=== PATIENT | male | born 1960 | race Caucasian/White ===

== ENCOUNTER 2019-07-16 16:35 | Observation (INO) ==
--- NOTE | 2019-07-16 17:55 | Diag Imaging Result Doc PS360 ---
CT HEAD W/O CONTRAST - 07/16/2019 INDICATION: confusion COMPARISON: None FINDINGS: The ventricles and sulci are normal in size and contour. No intracranial mass or hemorrhage. The skull is intact. There is some mild ethmoid and sphenoid sinusitis. IMPRESSION: Mild sinusitis. No acute intracranial abnormality. This exam was performed using automated exposure control, adjustment of mA or kV according to patient size, and/or use of iterative reconstruction technique Electronically signed by Bernardino Lopez 07/16/2019 5:52 PM
--- NOTE | 2019-07-16 18:44 | PROVIDER DOCUMENTATION ---
HPI-Screening - General Chief Complaint: Stroke-Like Symptoms Stated Complaint: "STROKE SYMPTOMS" Time Seen by Provider: 07/16/19 18:38 Source: patient Allergies/Adverse Reactions: Allergies Allergy/AdvReac Type Severity Reaction Status Date / Time prochlorperazine edisylate * AdvReac Severe Unknown Verified 03/26/18 12:26 [From Compazine] prochlorperazine maleate * AdvReac Severe Unknown Verified 03/26/18 12:26 [From Compazine] Home Medications: Home Medication List Medication Instructions Recorded Confirmed Last Taken Type Atenolol 100 mg PO DAILY 02/10/13 02/10/13 02/10/13 05:00 History Lorazepam [Ativan] 0.5 mg PO TID 02/10/13 02/10/13 02/10/13 05:00 History Docusate Sodium [Colace] 100 mg PO BID #40 capsule 02/14/13 Unknown Rx Hydrocodone/Acetaminophen [Lortab 1 each PO Q4H PRN #30 tablet 02/14/13 Unknown Rx 5-500 Tablet] Ondansetron [Zofran] 4 mg PO Q4H PRN PRN #0 tablet 02/14/13 Unknown Rx Patient arrived via EMS?: No Screening Depart - Departure Referrals and Follow-Ups: Baldomero Scott MD [Primary Care Provider] -
--- NOTE | 2019-07-16 18:49 | PROVIDER DOCUMENTATION ---
HPI-Neurological Disorder - General Chief Complaint: Stroke-Like Symptoms Stated Complaint: "STROKE SYMPTOMS" Time Seen by Provider: 07/16/19 18:38 Source: patient Allergies/Adverse Reactions: Patient Allergies Allergy/AdvReac Type Severity Reaction Status Date / Time prochlorperazine edisylate * AdvReac Severe Unknown Verified 03/26/18 12:26 [From Compazine] prochlorperazine maleate * AdvReac Severe Unknown Verified 03/26/18 12:26 [From Compazine] Home Medications: Home Medication List Medication Instructions Recorded Confirmed Last Taken Type Atenolol 100 mg PO DAILY 02/10/13 02/10/13 02/10/13 05:00 History Lorazepam [Ativan] 0.5 mg PO TID 02/10/13 02/10/13 02/10/13 05:00 History Docusate Sodium [Colace] 100 mg PO BID #40 capsule 02/14/13 Unknown Rx Hydrocodone/Acetaminophen [Lortab 1 each PO Q4H PRN #30 tablet 02/14/13 Unknown Rx 5-500 Tablet] Ondansetron [Zofran] 4 mg PO Q4H PRN PRN #0 tablet 02/14/13 Unknown Rx - History of Present Illness-Neuro Nature of Presenting Problem: Patient is a 58 year old white male with history DVTs, HTN, migraines who presents with with decreased mentation over past several days. Followed by Dr. Scott, , who instructed patient to come to ER. Here with . Review of Systems - Adult - REVIEW OF SYSTEMS - ADULT Constitutional: denies: chills, fever Eyes: denies: blurred vision Ears, Nose, Mouth & Throat: denies: throat pain, throat swelling Cardiovascular: denies: chest pain Respiratory: denies: shortness of breath Gastrointestinal: denies: abdominal pain, nausea, vomiting Genitourinary: denies: dysuria Musculoskeletal: reports: no symptoms reported Integumentary: reports: see HPI Psychiatric: reports: anxiety Endocrine: reports: no symptoms reported Hematologic/Lymphatic: reports: blood clots Allergic/Immunologic: reports: no symptoms reported All Other Systems: Reviewed and Negative Past History - Adult - PAST MEDICAL HISTORY-ADULT Review of Records: reports: Old Records Reviewed, Nursing Assessment Review, Medications Reviewed, Social history reviewed & non-contributory. Cardiovascular: reports: HTN Respiratory: reports: denies history Gastrointestinal: reports: denies history Musculoskeletal: reports: denies history - PRIOR SURGERIES/PROCEDURES Surgical/Procedure History: reports: orthopedic (extremity) (tendon repair of both elbows), other (colon surgery by Dr. Robledo for bowel obstruction 6 yrs ago) - FAMILY HISTORY Family History: reviewed, not pertinent - SOCIAL HISTORY Smoking: quit less than 1 year, less than 1 pack/day Substance Use: other (quit alcohol) Alcohol Use Frequency: sober (former use) Living Situation: friend Occupation: unemployed Physical Exam- Neurological - Physical Exam-Neuro General Appearance: alert, no apparent distress, other (poor recall) Eye Exam: bilateral eye: PERRL, EOMI HENMT: normocephalic/atraumatic, moist mucous membranes Head Injury: no evidence of injury Neck: supple Respiratory: lungs clear Cardiovascular: regular rate, rhythm Abdominal Exam: non tender Lymphatic: no adenopathy Peripheral Pulses: radial (R): 2+, radial (L): 2+ Extremity: normal range of motion, non-tender oyster floater Exam: normal speech, other (nonfocal, poor recall, inappropriate behavior, rambling speech) Coordination/Gait: normal gait Motor/Sensory: no motor deficit, no sensory deficit Neurologic: grossly normal Integumentary: normal color, normal turgor, warm/dry Psych/Mental Status: anxious - Glascow Coma Scale Best Eye Response: (4) open spontaneously Best Verbal Response: (5) oriented Best Motor Response: (6) obeys commands Total Glascow Score: 15 Progress - PLAN OF CARE/RESULTS Progress/Plan/Lab Results: Vital Signs - 8 hr 07/16/19 16:39 Temperature 97.5 F L Pulse Rate 75 Respiratory Rate 16 Blood Pressure 148/84 O2 Sat by Pulse Oximetry 94 L Laboratory Results - last 24 hr 07/16/19 07/16/19 07/16/19 16:48 16:48 16:48 WBC 6.27 RBC 4.03 L Hgb 12.2 L Hct 37.0 L MCV 91.8 MCH 30.3 MCHC 33.0 RDW Std Deviation 13.0 Plt Count 142 MPV 12.0 H Immature Gran % (Auto) 0.0 Neut % (Auto) 45.4 Lymph % (Auto) 34.1 [place] % (Auto) 10.5 H Eos % (Auto) 8.6 Baso % (Auto) 1.4 H Immature Gran # (Auto) 0.00 Neut # (Auto) 2.84 Lymph # (Auto) 2.14 [place] # (Auto) 0.66 H Eos # (Auto) 0.54 Baso # (Auto) 0.09 PT 20.4 H INR 1.70 Sodium 142 Potassium 4.5 Chloride 104 Carbon Dioxide 27 Anion Gap 11 BUN 15 Creatinine 1.1 Estimated GFR/1.73 m2 > 60 BUN/Creatinine Ratio 14 Glucose 88 Calculated Osmolality 283 Calcium 8.8 Total Bilirubin 0.25 AST 21 ALT 15 Alkaline Phosphatase 73 Troponin T High Sens Total Protein 6.2 L Albumin 3.9 Globulin 2.3 Albumin/Globulin Ratio 1.7 07/16/19 16:48 WBC RBC Hgb Hct MCV MCH MCHC RDW Std Deviation Plt Count MPV Immature Gran % (Auto) Neut % (Auto) Lymph % (Auto) [place] % (Auto) Eos % (Auto) Baso % (Auto) Immature Gran # (Auto) Neut # (Auto) Lymph # (Auto) [place] # (Auto) Eos # (Auto) Baso # (Auto) PT INR Sodium Potassium Chloride Carbon Dioxide Anion Gap BUN Creatinine Estimated GFR/1.73 m2 BUN/Creatinine Ratio Glucose Calculated Osmolality Calcium Total Bilirubin AST ALT Alkaline Phosphatase Troponin T High Sens 7 Total Protein Albumin Globulin Albumin/Globulin Ratio Orders Category Date Time Status CT HEAD W/O CONTRAST [CT] Stat Exams 07/16/19 17:00 Completed CBC WITH ELECTRONIC DIFF [HEME] Stat Lab 07/16/19 16:48 Completed COMPREHENSIVE METABOLIC PANEL [CHEM] Stat Lab 07/16/19 16:48 Completed PROTIME WITH INR [COAG] Stat Lab 07/16/19 16:48 Completed TROPONIN T HIGH SENSITIVITY Stat Lab 07/16/19 16:48 Completed URINALYSIS W/POSS RFLX CULT [URINALYSIS] Stat Lab 07/16/19 18:45 Uncollected URINE DRUG SCREEN Stat Lab 07/16/19 18:45 Uncollected EKG [EKG] Stat Ther 07/16/19 18:45 Ordered Result Diagrams: 07/16/19 16:48 07/16/19 16:48 - CT/MRI 1 CT Study: Head CT Results: no acute intracranial process,sinusitis - CONSULTS/PCP/HOSPITALIST Notification #1 *Consult/PCP/Hospitalist*: Dr. Burciaga, hospitalist Time Discussed: 21:10 Consult Disposition: Admit Departure - Departure Date of Disposition Decision: 07/16/19 Time of Disposition Decision: 21:14 DIAGNOSIS: Altered mental state Qualifiers: Altered mental status type: unspecified Qualified Code(s): R41.82 - Altered mental status, unspecified Disposition: ADMITTED INPATIENT 09 Certified Medical Emergency: Emergent Condition: Stable Referrals and Follow-Ups: Baldomero Scott MD [Primary Care Provider] - - Critical Care Note This patient required my direct & personal management of CC.: No Attestation - Physician/ BEN Attestation Patient care was provided by Advanced Practice Provider:: No The physician spent face to face time with patient:: Yes Advanced Practice Provider documentation review:: Supervising physician onsite and consulted in the evaluation and care of this patient. The physician did have a face to face encounter with the patient. - NIH Stroke Scale Level of Consciousness: 0-Alert LOC Questions (ask month and age): 0-Answers Both Correctly LOC Commands (ask to open & close eyes;make a fist, let go): 0-Obeys Both Correctly Best Gaze (horizontal eye movement): 0-Normal Visual (use finger movement, counting or visual threat): 0-No Visual Loss Facial Palsy (show teeth or raise eyebrows & close eyes tght: 0-Symmetrical Move ment Motor Function-left arm: 0-Normal Motor Function-right arm: 0-Normal Motor Function-left le-Normal Motor Function-right le-Normal Limb Ataxia(nuwfao-bhbr-ibrjfg, or heel to novak): 0-No Ataxia Sensory(pin prick to face,arms,trunk,legs-compare side/side): 0-No Ataxia Best Language(name item/read sentence.Ex-Down to Earth): 0-No Aphasia Dysarthria(Pt read words or say words Ex.Mama,Tip-Top,Thanks: 0-Normal Articulation Extinction and Inattention: 0-Normal NIH Total Score: 0
[2019-07-16 19:18] LABS: BASO# 0.09 X1000 (0.0-0.2); BASO% 1.4 % (0.0-0.8); EOS# 0.54 X1000 (0.0-0.7); EOS% 8.6 % (0.0-10.0); HEMOGLOBIN 12.2 g/dL (14.0-18.0); LYMPH# 2.14 X1000 (1.2-3.4); LYMPH% 34.1 % (20.5-51.1); MCH 30.3 PG (27-31); MCV 91.8 FL (81-99); MONO# 0.66 X1000 (0.11-0.59); MONO% 10.5 % (1.7-9.3); NEUT# 2.84 X1000 (1.4-6.5); NEUT% 45.4 % (42.2-75.2); PLT 142 X1000 (130-400); RBC 4.03 XMIL (4.7-6.1); WBC 6.27 X1000 (4.8-10.8)
[2019-07-16 19:25] LABS: INR 1.7; PROTIME 20.4 Seconds (11.0-16.0)
[2019-07-16 19:38] LABS: AGAP 11; ALB/GLOB RATIO 1.7; ALBUMIN 3.9 g/dL (3.5-5.0); ALKALINE PHOSPHATASE 73 U/L (32-122); BUN 15 mg/dL (8-22); CALCIUM 8.8 mg/dL (8.8-10.2); CHLORIDE 104 mmol/L (98-107); COSMO 283; CREATININE 1.1 mg/dL (0.7-1.2); ESTIMATED GFR > 60; GLUCOSE 88 mg/dL (70-104); GOT 21 U/L (10-34); GPT 15 U/L (10-44); POTASSIUM 4.5 mmol/L (3.5-5.1); SODIUM 142 mmol/L (136-145); TCO2 27 mmol/L (25-35); TOTAL BILIRUBIN 0.25 mg/dL (0.20-1.00); TOTAL PROTEIN 6.2 g/dL (6.3-8.3)
[2019-07-16] MEDS ORDERED: TENORMIN PO ONE (22:15)
[2019-07-16] MEDS ORDERED: TYLENOL PO PRN (22:18)
--- NOTE | 2019-07-16 22:59 | HISTORY AND PHYSICAL ---
PRIMARY CARE PHYSICIAN: Dr. Perdomo. CHIEF COMPLAINT: Confusion, memory loss. HISTORY OF PRESENTING ILLNESS: A 58-year-old male with a history of hypertension, migraines, anxiety disorder and left lower extremity DVT. He had presented to the emergency department with several-day history of having worsening confusion and memory loss. As per patient and family, he has been under lot of stress due to his recent job loss and other issues going on. He was seen in the ED and due to his presenting symptoms it was thought that we will place him for observation for further evaluation and management. At the time of my examination, the patient denied any fever, chills, chest pain, shortness of breath or any weight changes. States he feels okay now. PAST MEDICAL HISTORY: Includes hypertension, migraines, anxiety disorder, left lower extremity DVT. PAST SURGICAL HISTORY: Bowel surgery. ALLERGIES: Compazine. MEDICATIONS: Current medications include atenolol 100 mg p.o. daily; alprazolam 1 mg p.o. t.i.d.; warfarin 5 mg p.o. daily; [place] 5/500, one p.o. q.4 hours. SOCIAL HISTORY: He is a former smoker, quit 4 months ago. History of alcohol use socially. Denies any illicit drug use. FAMILY HISTORY: No history of coronary disease. REVIEW OF SYSTEMS: Fourteen-point review of systems is as in HPI. Other systems negative. PHYSICAL EXAMINATION: GENERAL: Cooperative, friendly male. He is resting more comfortably now. VITAL SIGNS: Temperature 97.5 degrees, pulse 75, respirations 16, blood pressure 148/84. HEENT: Atraumatic, normocephalic. Extraocular movements intact. PERRLA. NECK: No masses. CHEST: Clear to auscultation. CARDIOVASCULAR: Regular rate and rhythm. ABDOMEN: Soft. Positive bowel sounds. EXTREMITIES: No edema. NEUROLOGIC: He is awake, alert and oriented x3. Speech is intact. Strength 5/5 in all extremities. GENITOURINARY: No bladder distention. SKIN: Warm. LABORATORY DATA: WBC 6.27, hemoglobin 12.2, hematocrit 37.0, platelets 142,000. INR is 1.70. Sodium 142, potassium 4.5, chloride 104, CO2 is 27, BUN is 15, creatinine is 1.1, glucose is 88. DIAGNOSTIC DATA: CT of the head: No acute intracranial abnormality. ASSESSMENT: A 58-year-old male with a history of hypertension, migraines, anxiety disorder and left lower extremity deep venous thrombosis, who presented to the emergency department with several-day history of having worsening confusion and memory loss. He was evaluated in the emergency department. Due to his presenting symptoms, it was thought that we will place him for observation for further evaluation and management. 1. Altered mental status with periods of confusion and memory loss. 2. Hypertension. 3. Anxiety disorder with panic attacks due to recent job loss. 4. Left lower extremity deep venous thrombosis. PLAN: 1. We will admit the patient to the medical floor with telemetry. 2. Continue with neurologic checks. 3. We will monitor blood pressure. Resume antihypertensive agent. 4. The patient's condition may be related to his anxiety. 5. We will continue his anticoagulation and monitor pro time and INR. 6. We will continue to follow and reassess, and make further recommendations based on the patient's clinical course. cc: MD Baldomero Blackburn MD
[2019-07-16] MEDS: NS 1,000 ML IV SCH (23:11)
[2019-07-16 23:24] LABS: URINE SOURCE CLEAN CATCH
[2019-07-16 23:28] LABS: BILIRUBIN URINE NEGATIVE (NEGATIVE); BLOOD URINE NEGATIVE (NEGATIVE); COLOR YELLOW; GLUCOSE URINE NEGATIVE (NEGATIVE); KETONE URINE NEGATIVE (NEGATIVE); LEUKOCYTES URINE NEGATIVE (NEGATIVE); NITRITE URINE NEGATIVE (NEGATIVE); PH URINE 6.5; PROTEIN URINE NEGATIVE (NEGATIVE); SP GRAVITY URINE 1.017; TURBIDITY URINE CLEAR (CLEAR); UROBILINOGEN URINE NORMAL (NORMAL)
[2019-07-16 23:29] LABS: UR EPITHELIAL CELLS <10 /HPF (<10); URINE BACTERIA NEGATIVE /HPF; URINE RBC <10 /HPF (<10); URINE WBC <10 /HPF (<10)
[2019-07-16 23:40] LABS: UR AMPHETAMINES QUAL NONE DETECTED (NONE DETECT); UR BARBITUATES QUAL NONE DETECTED (NONE DETECT); UR BENZODIAZEPIN QUAL PRESUMPTIVE POSITIVE (NONE DETECT); UR CANNABINOIDS QUAL NONE DETECTED (NONE DETECT); UR COCAINE QUAL NONE DETECTED (NONE DETECT); UR METHADONE QUAL NONE DETECTED (NONE DETECT); UR OPIATES QUAL PRESUMPTIVE POSITIVE (NONE DETECT); UR OXYCODONE QUAL NONE DETECTED (NONE DETECT); UR PCP QUAL NONE DETECTED (NONE DETECT)
--- NOTE | 2019-07-16 23:48 | ED EKG INTERP ---
This chart was entered by Barbara Jaffe Scribe, acting as scribe for Juan Somers MD. EKG Interpretation - EKG Time of EKG reading by physician:: 22:10 EKG Read and Signed by:: Juan Somers EKG Interpretation (*Must complete 3 of following elements*): Normal Rate: 79 Rhythm: Sinus rhythm with premature supraventricular complexes Comments: No STEMI Attestation - Physician/ BEN Attestation Patient care was provided by Advanced Practice Provider:: No The physician spent face to face time with patient:: Yes Advanced Practice Provider documentation review:: Supervising physician onsite and consulted in the evaluation and care of this patient. The physician did have a face to face encounter with the patient. This chart was documented by the indicated scribe, (Barbara Jaffe Scribe) and accurately reflects the services I performed and decisions made by me, Juan Somers MD, as attested by the provider's signature.
--- NOTE | 2019-07-17 00:04 | EKG Report ---
Test Performed on : 07/16/2019 10:09:12 PM Test Reason : Stroke like symptoms Blood Pressure : / mmHG Vent. Rate : 079 BPM Atrial Rate : 079 BPM P-R Int : 148 ms QRS Dur : 078 ms QT Int : 368 ms P-R-T Axes : 053 024 019 degrees QTc Int : 421 ms Sinus rhythm. with premature supraventricular complexes. Otherwise normal ECG When compared with ECG of 10-FEB-2013 12:45, premature supraventricular complexes. are now present Nonspecific T wave abnormality now evident in Inferior leads Unconfirmed Result
[2019-07-17] MEDS ORDERED: COUMADIN PO SCH (09:00)
[2019-07-17] MEDS ORDERED: TENORMIN PO SCH (09:00)
[2019-07-17] MEDS: XANAX PO SCH ×2 (09:02→15:00)
--- NOTE | 2019-07-17 09:31 | DISCHARGE SUMMARY ---
ADMISSION DATE: 07/16/2019 DISCHARGE DATE: 07/17/2019 HOSPITAL COURSE: Mr. Dominguez came in yesterday. He was suffering from some confusion and memory loss that seemed to accentuate, get worse during the week. Presented to the emergency department with a several-day history of worsening confusion, memory loss. He has been under a lot of stress, recent job loss and some money issues. He has history of hypertension, history of migraines, anxiety disorder, left lower extremity DVT, is on Coumadin. He had no focal neurologic deficits or changes, just altered mental status with periods of confusion and memory loss. He has had issues with alcohol in the past. Denies any alcohol at this time. LAB: Lab was unremarkable. His toxicology positive for benzodiazepines and opioids. MEDICATIONS: His current regimen at home: He is taking Ativan in addition to Xanax, and so he is on Xanax 1 mg t.i.d., atenolol 100 mg a day, hydrocodone he takes 5 mg tablet q. 4 hours p.r.n., Ativan 1 mg t.i.d., and Coumadin 5 mg at bedtime. His pro time was 20. We stopped the Ativan, continued his Xanax. Held the hydrocodone. Seems to be doing better. I feel his mental status changes could be explained on the basis of a combination of benzodiazepines and hydrocodone, and we will plan on letting him go home. We will continue his current Xanax 1 mg t.i.d. We will stop the hydrocodone and we will stop the Ativan. cc: Baldomero Scott MD
[2019-07-17 15:07] VITALS: BP 142/79
--- NOTE | 2019-07-17 16:13 | DISCHARGE SUMMARY ---
ADMISSION DATE: 07/16/2019 DISCHARGE DATE: 07/17/2019 HISTORY: A 58-year-old with history of hypertension, migraine headaches, anxiety disorder, left lower extremity DVT. He presented to the emergency room with several day history of having worsening confusion, memory loss. Patient and his family has been under a lot of stress, recent job, lost money issues. He was seen in the emergency room, thought we would place him for observation. He had a pretty good night. He is lethargic. He states he just feels like he is not able to concentrate well and had some confusion yesterday. He denies any alcohol. His drug screen was consistent with the [place] that he takes and he takes Xanax. He also was on some Ativan. I am not sure to what degree he is taking the Ativan, but he is on atenolol 100 mg daily, alprazolam 1 mg t.i.d., and warfarin 5 mg a day, [place] 5/500 q.4 hours p.r.n. He wanted to go home following day. No focal neurologic deficits. His CT of his head without contrast was unremarkable, some mild sinusitis. No acute intracranial pathology and so we will let him go home. I am going to cut his Xanax down to twice a day. He understands that and told him not to take any Ativan and he will continue his Coumadin 5 mg daily. His level was checked recently in my office and it was therapeutic and Ten[place] he takes 100 mg a day. He takes Tylenol p.r.n. and I will see him back in my office in a couple weeks. LAB: CBC, electrolytes, thyroid all look good. Toxicology: He was positive for benzodiazepines and opiates. cc: Baldomero Scott MD
[2019-07-17] MEDS: NS 1,000 ML IV SCH (16:52)
== END 2019-07-17 17:27 | disposition home or self-care (01) ==
LOC: ED 16:35 → SUATTDRO 21:59 → INTOOBSV 21:59 → EDIPHOLD 21:59 → 4N 07-17 02:05
PROVIDERS: ADMIT Emergency Medicine; ATTEND Emergency Medicine